=== PATIENT | female | born 1950 | race Caucasian/White ===

== ENCOUNTER → 2025-08-05 | Outpatient (CLI) | payer MEDICARE ==
[~2025-08-05] MED LIST: ATOR1TAB19; GLIM1TAB84; LISI5TAB11; OMEP-173 PO
== END ==
LOC: M CARPUL 10:27
PROVIDERS: ATTEND Physician Assistant
DX: R07.9 Chest pain, unspecified (principal)

== ENCOUNTER → 2025-08-16 | Outpatient (CLI) | payer MEDICARE | LOC: M EKG 09:12 | PROVIDERS: ATTEND Physician Assistant | DX: R00.2 Palpitations (principal) ==